=== PATIENT | male | born 1995 | race Caucasian/White ===

== ENCOUNTER 2024-04-12 08:53 | Observation (INO) | payer BC, SELFPAY ==
[2024-04-12] VITALS (21 sets, daily range): BP systolic 79–122; BP diastolic 49–83; PULSE 79–118; RESP 11–20; TEMP 36.9–38.9; O2SAT 98–100; BMI 33.3
[2024-04-12 09:19] LABS: Basophils Percent Auto 0.3 % (0.2-1.2); Eosinophils Absolute Auto 0.1 K/mm3 (0-0.3); Eosinophils Percent Auto 1.5 % (0-4.4); Hematocrit 44.7 % (42.0-52.0); Hemoglobin 14.9 g/dL (14.0-18.0); Immature Granulocyte Absolute 0.01 K/mm3 (0.00-0.031); Immature Granulocyte Percent A 0.1 % (0-0.5); Lymphocytes Absolute Auto 1.12 K/mm3 (0.9-3.2); Mean Corpuscular HGB Conc 33.3 g/dl (32-36); Mean Corpuscular Hemoglobin 30.9 pg (26-34); Mean Corpuscular Volume 92.7 fl (80-100); Mean Platelet Volume 9.8 fl (7.4-10.4); Monocytes Absolute Auto 0.7 K/mm3 (0.1-0.6); Monocytes Percent Auto 9.2 % (2.6-8.5); Neutrophils Absolute Auto 5.5 K/mm3 (1.3-6.7); Neutrophils Percent Auto 73.9 % (45.5-73.1); Platelet Count Result 243 k/mm3 (150-375); Red Blood Count 4.82 M/mm3 (4.6-6.20); White Blood Count 7.5 K/mm3 (4.5-10.0)
--- NOTE | 2024-04-12 09:27 | ED.CHESTPAIN ---
HPI - Chest Pain General Chief Complaint: Chest Pain Stated Complaint: chest pain Time Seen by Provider: 04/12/24 09:08 Source: patient Mode of arrival: ambulatory Limitations: no limitations History of Present Illness HPI narrative: This is a 28-year-old male that presents the emergency department for cold symptoms ongoing over the last couple of days. Reports fever, cough, congestion. Also reports shortness of breath. Reports chest pain that is worse with coughing. Reports recent sick contacts. Related Data Home Medications ?Medication ?Instructions ?Recorded ?Confirmed ?Last Taken ?Type No Home Medications 04/12/24 04/12/24 Unknown History Allergies Allergy/AdvReac Type Severity Reaction Status Date / Time No Known Allergies Allergy Verified 04/12/24 13:01 Review of Systems Review of Systems: CONSTITUTIONAL: Reports fever ENT: Reports congestion CARDIOVASCULAR: Reports chest pain. Denies edema. RESPIRATORY: Reports cough and dyspnea. All systems reviewed & are unremarkable except as noted in HPI and below PMFSH Past Medical History Medical History (Updated 04/12/24 @ 13:24 by Hillary Perez PA-C) No active medical problems Family History Family History (Updated 04/12/24 @ 13:07 by Hailey Romero RN) Mother Hypertension Grandparent Acute myocardial infarction Social History Social History (Updated 04/12/24 @ 09:28 by Hillary Perez PA-C) Smoking status: Never smoker Alcohol intake: current Drinks per week: 0 Substance use: never Do You Feel Safe in your Home?: Yes Lack of Transportation: No Lack of Food: Never True Current Housing: I Have Housing Concerned About Future Housing: No Difficulty Paying Gas/Electric Bills: No Difficulty Paying for Meds: No Currently Unemployed: No Education: High School Diploma/GED Difficulty w/ Childcare or Family Care: No Spiritual care concerns: No Exam Narrative: GENERAL: Well-appearing, well-nourished, and in no acute distress. HEAD: Normocephalic, atraumatic. EYES: EOMI. ENT: Nares clear, no rhinorrhea or epistaxis. Mucous membranes moist. Oropharynx without tonsillar hypertrophy exudate or other lesions. Bilateral TMs pearly gaxiola non-bulging NECK: Supple. No adenopathy or masses. CHEST: Clear to auscultation. No respiratory distress. No wheezes rales or rhonchi HEART: Tachycardic, regular rhythm. No murmur heard. Normal peripheral pulses. EXTREMITIES: Normal range of motion. No edema. SKIN: Warm, dry, no rash. NEURO: No focal deficits. Alert and oriented x3. PSYCH: Normal mood and affect Course Course Emergency Course: patient and family updated on workup and need for admission Consultations Consultation #1: spoke with cardiology who saw the patient in the ER. They will consult Date: 04/12/24 Consultation #2: Spoke with hospitalist about patient and workup who accepts admission Date: 04/12/24 Vital Signs Vital signs: Vital Signs Pulse Rate 112 H 04/12/24 09:00 Respiratory Rate 20 04/12/24 09:00 Pulse Oximetry 100 04/12/24 09:00 Temperature 100.5 F H 04/12/24 11:24 Pulse Rate 90 04/12/24 12:36 Respiratory Rate 18 04/12/24 12:36 Blood Pressure 104/64 04/12/24 12:36 Pulse Oximetry 99 04/12/24 12:36 Oxygen Delivery Room Air 04/12/24 09:05 MDM - Chest Pain MDM Narrative Medical decision making narrative: Patient presents to the emergency department for viral symptoms on will of days. Also endorsing chest pain, shortness of breath. Febrile upon arrival to the ER as well as tachycardic. Patient given antipyretic and hydrated. CBC without concerning findings. Metabolic panel with mild transaminitis. Patient is influenza B positive. Chest x-ray without acute cardiopulmonary abnormality. Patient did have ST elevations noted on EKG, but with normally inflected T-waves which seemed consistent with early repolarization. His baseline troponin has come back at 19.8. spoke with cardiology who saw the patient in the ER. They will consult. Spoke with hospitalist about patient and workup who accepts admission Differential Diagnosis Differential diagnosis: Likely stable angina, costochondritis and other (Pericarditis, myocarditis, NSTEMI, pneumonia) Lab Data Attestation: I reviewed the patient's lab results. 04/12/24 09:06 04/12/24 09:06 Labs: Lab Results 04/12/24 04/12/24 Range/Units 09:06 09:06 WBC 7.5 (4.5-10.0) K/mm3 RBC 4.82 (4.6-6.20) M/mm3 Hgb 14.9 (14.0-18.0) g/dL Hct 44.7 (42.0-52.0) % MCV 92.7 (80-100) fl MCH 30.9 (26-34) pg MCHC 33.3 (32-36) g/dl RDW 12.0 (11.5-14.5) % Plt Count 243 (150-375) k/mm3 MPV 9.8 (7.4-10.4) fl Immature Gran % (Auto) 0.1 (0-0.5) % Neut % (Auto) 73.9 H (45.5-73.1) % Lymph % (Auto) 15.0 L (18.3-44.2) % [place] % (Auto) 9.2 H (2.6-8.5) % Eos % (Auto) 1.5 (0-4.4) % Baso % (Auto) 0.3 (0.2-1.2) % Lymph # (Auto) 1.12 (0.9-3.2) K/mm3 [place] # (Auto) 0.7 H (0.1-0.6) K/mm3 Eos # (Auto) 0.1 (0-0.3) K/mm3 Baso # (Auto) 0.0 (0.0-0.1) K/mm3 Abs Immat Gran (auto) 0.01 (0.00-0.031) K/mm3 Absolute Neuts (auto) 5.5 (1.3-6.7) K/mm3 Absolute Nucleated RBC 0.000 (0.0-0.012) K/mm3 Nucleated RBC % 0.0 (0.0-0.2) % ESR 20 (0-20) mm/hr PT 12.4 (11.1-14.7) Seconds INR 0.9 APTT 27.4 (22.3-36.8) Seconds D-Dimer < 0.27 (<0.48) ug/mL Sodium 141 (137-145) mmol/L Potassium 4.0 (3.4-5.0) mmol/L Chloride 98 (98-107) mmol/L Carbon Dioxide 31 H (22-30) mmol/L Anion Gap 12 (4-12) mmol/L BUN 11 (9-20) mg/dL Creatinine 1.02 (0.7-1.3) mg/dL Estim Creat Clear Calc 95 ml/min Estimated GFR > 60 (59 - ) Glucose 98 (65-110) mg/dL Calcium 9.2 (8.4-10.2) mg/dL Total Bilirubin 0.7 (0.2-1.3) mg/dL AST 188 H (17-59) U/L ALT 60 H (6-50) U/L Alkaline Phosphatase 77 (38-126) U/L Troponin I 19.800 H* (0.000-0.034) ng/mL C-Reactive Protein 2.9 H (<1.0) mg/dL NT-Pro-B Natriuret Pep Cancelled 794 H Total Protein 8.0 (6.3-8.2) g/dL Albumin 4.7 (3.5-5.1) g/dL Lipase 38 (23-300) U/L Influenza A (RT-PCR) Negative (Negative) Influenza B (RT-PCR) Positive A (Negative) RSV (RT-PCR) Negative (Negative) SARS-CoV-2 RNA (RT-PCR) Negative (Negative) Imaging Data Radiologist's impression: ITS Impressions Chest X-Ray 04/12/24 09:35 IMPRESSION: 1. No acute cardiopulmonary disease. ECG Data EKG #1: ECG completion date: 04/12/24 EKG Interpretation: tachycardia, sinus rhythm, ST elevation (With normally inflected T-waves) and normal QT Critical Care Time Critical Care Time Critical Care Time: No Discharge Plan Discharge Clinical Impression: Influenza B, Elevated troponin, Transaminitis Chest pain Qualifiers: Chest pain type: unspecified Qualified Code(s): R07.9 - Chest pain, unspecified Patient Disposition: Still a Patient Condition: Serious
[2024-04-12 09:30] LABS: Alanine Aminotransferase 60 U/L (6-50); Albumin Level 4.7 g/dL (3.5-5.1); Alkaline Phosphatase 77 U/L (38-126); Anion Gap 12 mmol/L (4-12); Aspartate Amino Transferase 188 U/L (17-59); Bilirubin,Total 0.7 mg/dL (0.2-1.3); Blood Urea Nitrogen 11 mg/dL (9-20); Calcium 9.2 mg/dL (8.4-10.2); Carbon Dioxide 31 mmol/L (22-30); Chloride 98 mmol/L (98-107); Estimated CRCL calculation 95 ml/min; Estimated Glomerular Filt Rate > 60; Glucose 98 mg/dL (65-110); Lipase 38 U/L (23-300); Sodium 141 mmol/L (137-145)
[2024-04-12] MEDS: ACETAMINOPHEN 500 MG TABLET 1000 MG PO (09:31)
[2024-04-12] MEDS: SODIUM CHLORIDE 0.9% IV 1,000 ML 999 ML IV CONT (09:32)
[2024-04-12 09:35] LABS: INR 0.9; Prothrombin Time 12.4 Seconds (11.1-14.7)
[2024-04-12 09:36] LABS: Partial Thromboplastin Time 27.4 Seconds (22.3-36.8)
[2024-04-12 09:55] LABS: Influenza A QL RT-PCR Negative (Negative); Influenza B QL RT-PCR Positive (Negative); RSV RNA, RT-PCR Negative (Negative); SARS-CoV-2 RNA PCR Negative (Negative)
[2024-04-12] MEDS: ASPIRIN 81 MG CHEWABLE TABLET 324 MG PO (10:04)
[2024-04-12] MEDS: MORPHINE SULFATE (*CRX) 4 MG/ML INJ IV PUSH (10:04)
[2024-04-12 10:18] LABS: D Dimer < 0.27 ug/mL (<0.48)
[2024-04-12 10:34] LABS: CRP 2.9 mg/dL (<1.0)
[2024-04-12 10:39] LABS: NT Pro B Type Natriuretic Pept 794 pg/mL (19.9-100)
[2024-04-12 10:43] LABS: Erythrocyte Sedimentation Rate 20 mm/hr (0-20)
--- NOTE | 2024-04-12 11:14 | PM.CNCAR ---
Assessment and Plan Assessment and plan (1) Non-STEMI (non-ST elevated myocardial infarction): Code(s): I21.4 - Non-ST elevation (NSTEMI) myocardial infarction Status: Acute Assessment and Plan: -Chest pain and elevated troponin of 19 appears to be secondary to pericarditis. Chest pain is described as a tightness across the chest that came on last night and got worse with cough and improved with change in position. Patient never had anginal chest pain prior to this viral illness. EKG shows diffuse OK depressions suggestive of pericarditis. Most likely etiology of pericarditis appears to be viral. Patient tested positive for influenza A -Start aspirin 1000 mg every 8 hours for 1 week and monitor for chest pain resolution -Add colchicine for 3 months to prevent recurrent pericarditis -TTE -Trend troponin to peak -EKG p.r.n. for any new chest pain -Outpatient exercise stress test after patient recovers from acute illness -Check and replace electrolytes to keep potassium greater than 4 and magnesium greater than 2 (2) Influenza A: Code(s): J10.1 - Influenza due to other identified influenza virus with other respiratory manifestations Status: Acute Assessment and Plan: -Management per ER and primary team (3) Acute pericarditis: Code(s): I30.9 - Acute pericarditis, unspecified Status: Acute Assessment and Plan: Most likely etiology of pericarditis appears to be recent viral infection EKG shows diffuse OK depressions suggestive of pericarditis versus early repolarization Troponin elevated at 19 Chest pain increases with change in position and cough/deep breath Start aspirin 1000 mg every 8 hours for 1 week and monitor for chest pain resolution Add colchicine for 3 months to prevent recurrent pericarditis TTE Trend troponin to peak EKG p.r.n. for any new chest pain Check and replace electrolytes to keep potassium greater than 4 and magnesium greater than 2 History of Present Illness History of Present Illness Consult date/time: 04/12/24 11:14 Reason For Visit: chest pain Narrative: 28-year-old male with no significant past medical history presented to the ER today with chief complaints of chest pain, cough, fever, chills, malaise. He tested positive for influenza A. Troponin is elevated at 19. Cardiology is consulted for further recommendations. Patient complains of cough, shortness or breath, fever, chills, malaise, body aches for past few days with (symptoms started Monday). Last night he reports an episode of tightness across front of his chest that lasted for 1-1/2 hours before it resolved. He says this was of intensity 7 x 10. There was no radiation of pain to any other part of the body. He did not have recurrence of this pain after that episode. When he had the pain it was worse with cough and improved with change in position. In the ER he tested positive for influenza A. Troponin is elevated at 19. EKG showed diffuse OK depressions suggestive of pericarditis. He denies any palpitations, lightheadedness, dizziness, presyncope, syncope, leg swelling, recent weight gain, PND, orthopnea, headache, focal weakness, nausea, emesis, abdominal pain. Workup: Troponin: 19 NT proBNP: 794 EKG:There is diffuse OK depression suggestive of pericarditis, T-wave inversion in lead III Review of Systems Review of Systems: A complete review of systems was performed and negative other than those mentioned in HPI [facility] Past Medical History Medical History (Updated 04/12/24 @ 11:16 by Allie Morgan MD) No active medical problems Social History Social History (Updated 04/12/24 @ 09:28 by Hillary Perez PA-C) Smoking status: Never smoker Meds Home Medications and Allergies Allergies Allergy/AdvReac Type Severity Reaction Status Date / Time No Known Allergies Allergy Verified 04/12/24 08:53 Vital Signs Vital Signs - 24 hr 04/12/24 09:00 04/12/24 09:02 04/12/24 09:03 Temperature Pulse Rate 112 H 118 H 116 H Respiratory Rate 20 16 11 L Blood Pressure 79/57 L 101/58 L Pulse Oximetry 100 98 100 Oxygen Delivery 04/12/24 09:05 04/12/24 09:10 04/12/24 09:16 Temperature 37.8 C H Pulse Rate 115 H 110 H 99 Respiratory Rate 20 Blood Pressure 101/58 L Pulse Oximetry 100 98 Oxygen Delivery Room Air 04/12/24 09:19 04/12/24 09:30 04/12/24 09:46 Temperature Pulse Rate 115 H 113 H 101 H Respiratory Rate 15 16 12 Blood Pressure 122/56 L Pulse Oximetry 100 100 100 Oxygen Delivery 04/12/24 10:05 Temperature 38.9 C H Pulse Rate Respiratory Rate Blood Pressure Pulse Oximetry Oxygen Delivery Exam Narrative: General: Alert oriented x3, no acute distress Neck: Supple, no JVD Chest: Bilaterally clear to auscultation, no rales or rhonchi Cardiac: S1, S2 +, regular rate, regular rhythm, no murmurs or rubs Extremities: No pedal edema, no skin rash Neurologic: Alert and oriented x3, no focal neurological deficits Results Labs and Meds 04/12/24 09:06 04/12/24 09:06 Lab results: Cardiac Enzymes 04/12/24 Range/Units 09:06 AST 188 H (17-59) U/L Troponin I 19.800 H* (0.000-0.034) ng/mL Coagulation 04/12/24 Range/Units 09:06 PT 12.4 (11.1-14.7) Seconds APTT 27.4 (22.3-36.8) Seconds CBC 04/12/24 Range/Units 09:06 WBC 7.5 (4.5-10.0) K/mm3 RBC 4.82 (4.6-6.20) M/mm3 Hgb 14.9 (14.0-18.0) g/dL Hct 44.7 (42.0-52.0) % Plt Count 243 (150-375) k/mm3 Lymph # (Auto) 1.12 (0.9-3.2) K/mm3 [place] # (Auto) 0.7 H (0.1-0.6) K/mm3 Eos # (Auto) 0.1 (0-0.3) K/mm3 Baso # (Auto) 0.0 (0.0-0.1) K/mm3 Comprehensive Metabolic Panel 04/12/24 Range/Units 09:06 Sodium 141 (137-145) mmol/L Potassium 4.0 (3.4-5.0) mmol/L Chloride 98 (98-107) mmol/L Carbon Dioxide 31 H (22-30) mmol/L BUN 11 (9-20) mg/dL Creatinine 1.02 (0.7-1.3) mg/dL Glucose 98 (65-110) mg/dL Calcium 9.2 (8.4-10.2) mg/dL AST 188 H (17-59) U/L ALT 60 H (6-50) U/L Alkaline Phosphatase 77 (38-126) U/L Total Protein 8.0 (6.3-8.2) g/dL Albumin 4.7 (3.5-5.1) g/dL Patient Weight 04/12/24 23:59 Weight 86.6 kg EKG Interpretation EKG shows: sinus rhythm (There is diffuse OK depression suggestive of pericarditis, T-wave inversion in lead III)
[2024-04-12] MEDS: OSELTAMIVIR PHOSPHATE 75 MG CAPSULE PO (11:17)
--- NOTE | 2024-04-12 12:25 | PM.IMHP ---
H&P: HPI History of Present Illness Date/Time: 04/12/24 12:25 Chief Complaint: Cold-like symptoms, chest pain Narrative: This is a 28-year-old male with no significant medical history that presented to the emergency department for cold symptoms ongoing over the last couple of days. Reports fever, cough, congestion that began on Monday. Reports chest pain that is worse with coughing and shortness of breath began today. Patient reports that his chest pain continued to get worse so he came to the ER for evaluation. On arrival to ER vital signs noted temperature a 100.5?, pulse 90 respirations 18 blood pressure 104/64 he was satting 99% on room air. EKG noted sinus rhythm, ST elevation in diffuse leads, probably early repolarization, minimal Q-waves, diffuse leads. Baseline artifacts in V1, V2, AVR, aVL, AVF, V1 through 5, this is a borderline EKG. Workup in the emergency department her white blood cell count of 7.5, hemoglobin 14.9, hematocrit 44.7, platelets 243, ESR is 20, BUN 11 creatinine 1.02, GFR 60. AST 188, ALT 60, total bili 0.7. BNP noted to be elevated at 794. CRP 2.9. Initial troponin was positive at 19.800, 1 hour repeat was 21.400. Chest xray No acute cardiopulmonary disease. CTA The heart is of normal size. No pericardial thickening. No pericardial effusion. No pericardial enhancement. No pulmonary embolus. No thoracic aortic dissection. The lungs are clear. On assessment patient states that his chest pain does improve with changes in position, he denies any shortness of breath at this time. Fever had reduced with antipyretics in the emergency department. He denied any nausea, vomiting or diarrhea. He denies any muscle aches. He did report fatigue. Cardiology was consulted in ER, per note Chest pain and elevated troponin of 19 appears to be secondary to pericarditis. Patient never had anginal chest pain prior to this viral illness. EKG shows diffuse MN depressions suggestive of pericarditis. Most likely etiology of pericarditis appears to be viral. Patient tested positive for influenza B. Patient was examine and admitted for a viral pericarditis, elevated troponins, influenza B. Review of Systems Review of Systems: All systems reviewed & are unremarkable except as noted in HPI and below Constitutional: Constitutional: Reports as per HPI, Reports no additional constitutional complaints, Reports chills, Reports fever(s) and Reports malaise Eyes: Eyes: Reports as per HPI and Reports no additional eye complaints ENT: Reports system reviewed and no additional complaints, except as documented Cardiovascular: Cardiovascular: Reports chest pain and Reports dyspnea Respiratory: Respiratory: Reports cough Gastrointestinal: Gastrointestinal: Reports as per HPI and Reports no additional gastrointestinal complaints Genitourinary: Genitourinary: Reports no additional male genitourinary complaints Musculoskeletal: Musculoskeletal: Reports no additional musculoskeletal complaints Integumentary/Breasts: Skin/Breast: Reports system reviewed and no additional complaints, except as docu Neurologic: Reports system reviewed and no additional complaints, except as documented Psychiatric: Psychiatric: Reports no additional psychiatric complaints Endocrine: Endocrine: Reports no additional endocrine complaints Allergic/Immunologic: Allergic/Immunologic: Reports no additional allergic/immunologic complaints [facility] Past Medical History Medical History No active medical problems Family History Family History Mother Hypertension Grandparent Acute myocardial infarction Social History Social History Smoking status: Never smoker Alcohol intake: current Drinks per week: 0 Substance use: never Do You Feel Safe in your Home?: Yes Lack of Transportation: No Lack of Food: Never True Current Housing: I Have Housing Concerned About Future Housing: No Difficulty Paying Gas/Electric Bills: No Difficulty Paying for Meds: No Currently Unemployed: No Education: High School Diploma/GED Difficulty w/ Childcare or Family Care: No Spiritual care concerns: No Meds Home Medications and Allergies Home Medications ?Medication ?Instructions ?Recorded ?Confirmed ?Type No Home Medications 04/12/24 04/12/24 History Allergies Allergy/AdvReac Type Severity Reaction Status Date / Time No Known Allergies Allergy Verified 04/12/24 13:01 Vital Signs Vital Signs - 24 hr 04/12/24 09:00 04/12/24 09:02 04/12/24 09:03 Temperature Pulse Rate 112 H 118 H 116 H Respiratory Rate 20 16 11 L Blood Pressure 79/57 L 101/58 L Pulse Oximetry 100 98 100 Oxygen Delivery 04/12/24 09:05 04/12/24 09:10 04/12/24 09:16 Temperature 100.0 F H Pulse Rate 115 H 110 H 99 Respiratory Rate 20 Blood Pressure 101/58 L Pulse Oximetry 100 98 Oxygen Delivery Room Air 04/12/24 09:19 04/12/24 09:30 04/12/24 09:46 Temperature Pulse Rate 115 H 113 H 101 H Respiratory Rate 15 16 12 Blood Pressure 122/56 L Pulse Oximetry 100 100 100 Oxygen Delivery 04/12/24 10:05 04/12/24 11:24 Temperature 102.1 F H 100.5 F H Pulse Rate Respiratory Rate Blood Pressure Pulse Oximetry Oxygen Delivery Exam Const: General: cooperative, no acute distress, alert, awake and ill appearing Nutritional Appearance: average body habitus Orientation/consciousness: patient oriented x3 Limitations: no limitations HENMT: Head: normocephalic Eyes: General: appearance normal, both eyes and all related structures Neck: Neck: full ROM and supple Chest: Chest palpation & inspection: normal inspection of the chest and normal palpation of entire chest wall Resp: Effort & Inspection: normal respiratory effort and Actively coughing Auscultation: rhonchi and diminished lung sounds bilateral in the lower lung amaya Cardio: Jugular venous distension: no JVD Rate: tachycardic Rhythm: abnormal rhythm Heart sounds: S1 normal heart sound present and S2 normal heart sound present Peripheral pulses: Peripheral pulses 2+ throughout GI: Inspection: normal to inspection GI Palp: Yes Soft to palpation Auscultation: normal bowel sounds Skin: General skin exam: normal color and no rashes or lesions noted Neuro: General: patient oriented x3, tone normal and moves all extremities Extrem: General: normal to inspection and full ROM Psych: Appearance: grossly normal Mental Status: mental status grossly normal Speech and movement: Normal speech and movement present H&P: Results Labs Labs: Short CBC 04/12/24 Range/Units 09:06 WBC 7.5 (4.5-10.0) K/mm3 Hgb 14.9 (14.0-18.0) g/dL Hct 44.7 (42.0-52.0) % Plt Count 243 (150-375) k/mm3 [facility] 04/12/24 09:06 Sodium 141 Potassium 4.0 Chloride 98 Carbon Dioxide 31 H BUN 11 Creatinine 1.02 Glucose 98 Calcium 9.2 Cardiac Enzymes 04/12/24 Range/Units 09:06 Troponin I 19.800 H* (0.000-0.034) ng/mL Liver Function 04/12/24 Range/Units 09:06 Total Bilirubin 0.7 (0.2-1.3) mg/dL AST 188 H (17-59) U/L ALT 60 H (6-50) U/L Alkaline Phosphatase 77 (38-126) U/L Albumin 4.7 (3.5-5.1) g/dL Imaging CT scan - chest: Radiologist's impression: HEART: The heart is of normal size. No pericardial thickening. No pericardial effusion. No pericardial enhancement. IMPRESSION: No pulmonary embolus. No thoracic aortic dissection. The lungs are clear. Chest x-ray: Radiologist's impression: IMPRESSION: 1. No acute cardiopulmonary disease. Assessment and Plan Assessment and plan (1) Non-STEMI (non-ST elevated myocardial infarction): Code(s): I21.4 - Non-ST elevation (NSTEMI) myocardial infarction Status: Acute Assessment and Plan: ##Chest pain and elevated troponin of 19 appears to be secondary to pericarditis. -->improves with position -->EKG shows diffuse MN depressions suggestive of pericarditis. Most likely etiology of pericarditis appears to be viral. --> positive for influenza B Per Cardiology: -Start aspirin 1000 mg every 8 hours for 1 week and monitor for chest pain resolution -Add colchicine for 3 months to prevent recurrent pericarditis -TTE -Trend troponin to peak -EKG p.r.n. for any new chest pain -Outpatient exercise stress test after patient recovers from acute illness -Check and replace electrolytes to keep potassium greater than 4 and magnesium greater than 2 (2) Influenza A: Code(s): J10.1 - Influenza due to other identified influenza virus with other respiratory manifestations Status: Acute Assessment and Plan: ##Influenza b positive --> symptomatic management --out of tamiflu window --trend labs (3) Acute pericarditis: Code(s): I30.9 - Acute pericarditis, unspecified Status: Acute Assessment and Plan: ##Most likely etiology of pericarditis appears to be recent viral infection Inflluenza b positive -->EKG shows diffuse MN depressions suggestive of pericarditis versus early repolarization -->Troponin elevated at 19 -trend trops per Cardiology: -Start aspirin 1000 mg every 8 hours for 1 week and monitor for chest pain resolution -Add colchicine for 3 months to prevent recurrent pericarditis -TTE -Trend troponin to peak - EKG p.r.n. for any new chest pain - Check and replace electrolytes to keep potassium greater than 4 and magnesium greater than 2 Plan DVT: lovenox/mechanical Code: Full Code Quality VTE Prophylaxis VTE prophylaxis: mechanical ordered and pharmacologic ordered Hospitalist MIPS Advance Care Plan I have confirmed that the patient's Advanced Care Plan is present, code status is documented, or surrogate decision maker is listed in patient medical record.: Yes Medication Reconciliation I have utilized all available resources to obtain, update and review the patients current medications (includes all prescriptions, OTC, herbals, cannabis, and nutritional supplements).: Yes
[2024-04-12 12:34] LABS: Magnesium 1.9 mg/dL (1.6-2.3)
--- NOTE | 2024-04-12 12:56 | ADMGEN ---
This patient, Richie Coyle, was admitted to ICU 9 at 1250 as IMU overflow. Patient/family oriented to hospital policies and general routines including ID bracelet, bed and alarms, visiting hours, pain management, procedures, bathroom and other care routines, personal items, smoking policy, room service/diet, and visiting hours. Information on how to activate the Rapid Response Team has been discussed. Patient/Family are encouraged to report perceived risks to care and to ask questions if they do not understand what they are told or what they should do.
[2024-04-12 15:09] LABS: MRSA (PCR) NOT DETECTED (NOT DETECTE)
[2024-04-12] MEDS: ASPIRIN 325 MG TABLET 975 MG PO (17:17)
--- NOTE | 2024-04-12 22:27 | PC.NURSE ---
2146 patient transferred to IMU room 214 via bed. Patient personal belongings with patient.
[2024-04-13] VITALS (13 sets, daily range): BP systolic 99–108; BP diastolic 42–64; PULSE 67–92; RESP 18–20; TEMP 36.6–36.8; O2SAT 98–100
[2024-04-13 04:46] LABS: Basophils Percent Auto 0.4 % (0.2-1.2); Eosinophils Absolute Auto 0.1 K/mm3 (0-0.3); Eosinophils Percent Auto 2.7 % (0-4.4); Hematocrit 39.3 % (42.0-52.0); Hemoglobin 13.2 g/dL (14.0-18.0); Immature Granulocyte Absolute 0.01 K/mm3 (0.00-0.031); Immature Granulocyte Percent A 0.2 % (0-0.5); Lymphocytes Absolute Auto 1.33 K/mm3 (0.9-3.2); Lymphocytes Percent Auto 25.4 % (18.3-44.2); Mean Corpuscular HGB Conc 33.6 g/dl (32-36); Mean Corpuscular Volume 92.3 fl (80-100); Mean Platelet Volume 9.3 fl (7.4-10.4); Monocytes Absolute Auto 0.6 K/mm3 (0.1-0.6); Monocytes Percent Auto 10.5 % (2.6-8.5); Neutrophils Absolute Auto 3.2 K/mm3 (1.3-6.7); Neutrophils Percent Auto 60.8 % (45.5-73.1); Platelet Count Result 203 k/mm3 (150-375); Red Blood Count 4.26 M/mm3 (4.6-6.20); White Blood Count 5.2 K/mm3 (4.5-10.0)
[2024-04-13 04:57] LABS: Alanine Aminotransferase 52 U/L (6-50); Albumin Level 3.9 g/dL (3.5-5.1); Alkaline Phosphatase 72 U/L (38-126); Anion Gap 6 mmol/L (4-12); Aspartate Amino Transferase 116 U/L (17-59); Bilirubin,Total 0.5 mg/dL (0.2-1.3); Blood Urea Nitrogen 9 mg/dL (9-20); Calcium 8.6 mg/dL (8.4-10.2); Carbon Dioxide 31 mmol/L (22-30); Chloride 102 mmol/L (98-107); Estimated CRCL calculation 98 ml/min; Estimated Glomerular Filt Rate > 60; Glucose 95 mg/dL (65-110); Potassium 4.7 mmol/L (3.4-5.0); Sodium 139 mmol/L (137-145)
[2024-04-13 05:04] LABS: NT Pro B Type Natriuretic Pept 708 pg/mL (19.9-100)
--- NOTE | 2024-04-13 08:30 | PM.IMPN ---
Progress Note: A&P Assessment and Plan (1) Non-STEMI (non-ST elevated myocardial infarction): Code(s): I21.4 - Non-ST elevation (NSTEMI) myocardial infarction Status: Acute Assessment and Plan: ##Chest pain and elevated troponin of 19 appears to be secondary to pericarditis. -->improves with position -->EKG shows diffuse VA depressions suggestive of pericarditis. Most likely etiology of pericarditis appears to be viral. --> positive for influenza B Per Cardiology: -Start aspirin 1000 mg every 8 hours for 1 week and monitor for chest pain resolution -Add colchicine for 3 months to prevent recurrent pericarditis -TTE -Trend troponin to peak -EKG p.r.n. for any new chest pain -Outpatient exercise stress test after patient recovers from acute illness -Check and replace electrolytes to keep potassium greater than 4 and magnesium greater than 2 (2) Influenza A: Code(s): J10.1 - Influenza due to other identified influenza virus with other respiratory manifestations Status: Acute Assessment and Plan: ##Influenza b positive --> symptomatic management --out of tamiflu window --trend labs (3) Acute pericarditis: Code(s): I30.9 - Acute pericarditis, unspecified Status: Acute Assessment and Plan: ##Most likely etiology of pericarditis appears to be recent viral infection Inflluenza b positive -->EKG shows diffuse VA depressions suggestive of pericarditis versus early repolarization -->Troponin elevated at 19 -trend trops per Cardiology: -Start aspirin 1000 mg every 8 hours for 1 week and monitor for chest pain resolution -Add colchicine for 3 months to prevent recurrent pericarditis -TTE -Trend troponin to peak - EKG p.r.n. for any new chest pain - Check and replace electrolytes to keep potassium greater than 4 and magnesium greater than 2 Plan DVT: lovenox/mechanical Code: Full Code Subjective Date/time seen: 04/13/24 08:30 Interval history: Patient denies any chest pain, or sob or palpitations. Possible discharge tomorrow. Reviewed ECHO Review of Systems Review of Systems: All systems reviewed & are unremarkable except as noted in HPI and below Constitutional: Constitutional: Reports as per HPI, Reports no additional constitutional complaints, Reports chills, Reports fever(s) and Reports malaise Eyes: Eyes: Reports as per HPI and Reports no additional eye complaints ENT: Reports system reviewed and no additional complaints, except as documented Cardiovascular: Cardiovascular: Reports chest pain and Reports dyspnea Respiratory: Respiratory: Reports cough and Reports dyspnea Gastrointestinal: Gastrointestinal: Reports as per HPI and Reports no additional gastrointestinal complaints Genitourinary: Genitourinary: Reports no additional male genitourinary complaints Musculoskeletal: Musculoskeletal: Reports no additional musculoskeletal complaints Integumentary/Breasts: Skin/Breast: Reports system reviewed and no additional complaints, except as docu Neurologic: Reports system reviewed and no additional complaints, except as documented Psychiatric: Psychiatric: Reports no additional psychiatric complaints Endocrine: Endocrine: Reports no additional endocrine complaints Allergic/Immunologic: Allergic/Immunologic: Reports no additional allergic/immunologic complaints Exam Const: General: cooperative, no acute distress, alert, awake, ill appearing and average body habitus Nutritional Appearance: average body habitus Orientation/consciousness: patient oriented x3 Limitations: no limitations HENMT: Head: normocephalic Eyes: General: appearance normal, both eyes and all related structures Neck: Neck: full ROM and supple Chest: Chest palpation & inspection: normal inspection of the chest and normal palpation of entire chest wall Resp: Effort & Inspection: normal respiratory effort and Actively coughing Auscultation: rhonchi and diminished lung sounds bilateral in the lower lung amaya Cardio: Jugular venous distension: no JVD Rate: tachycardic Rhythm: abnormal rhythm Heart sounds: S1 normal heart sound present and S2 normal heart sound present Peripheral pulses: Peripheral pulses 2+ throughout GI: Inspection: normal to inspection Auscultation: normal bowel sounds Skin: General skin exam: normal color and no rashes or lesions noted Neuro: General: patient oriented x3, tone normal and moves all extremities Extrem: General: normal to inspection and full ROM Psych: Appearance: grossly normal Mental Status: mental status grossly normal Speech and movement: Normal speech and movement present Objective Data Vital Signs Vital Signs: Vital Signs - 24 hr 04/12/24 09:00 04/12/24 09:02 04/12/24 09:03 Temperature Pulse Rate 112 H 118 H 116 H Respiratory Rate 20 16 11 L Blood Pressure 79/57 L 101/58 L Pulse Oximetry 100 98 100 Oxygen Delivery 04/12/24 09:05 04/12/24 09:10 04/12/24 09:16 Temperature 100.0 F H Pulse Rate 115 H 110 H 99 Respiratory Rate 20 Blood Pressure 101/58 L Pulse Oximetry 100 98 Oxygen Delivery Room Air 04/12/24 09:19 04/12/24 09:30 04/12/24 09:46 Temperature Pulse Rate 115 H 113 H 101 H Respiratory Rate 15 16 12 Blood Pressure 122/56 L Pulse Oximetry 100 100 100 Oxygen Delivery 04/12/24 10:05 04/12/24 11:24 04/12/24 12:36 Temperature 102.1 F H 100.5 F H Pulse Rate 90 Respiratory Rate 18 Blood Pressure 104/64 Pulse Oximetry 99 Oxygen Delivery 04/12/24 13:13 04/12/24 14:00 04/12/24 14:04 Temperature Pulse Rate 90 99 Respiratory Rate 17 Blood Pressure 98/58 L Pulse Oximetry 100 Oxygen Delivery Room Air 04/12/24 16:00 04/12/24 16:00 04/12/24 17:20 Temperature 99.2 F Pulse Rate 79 89 106 H Respiratory Rate 15 Blood Pressure 97/55 L 108/54 L Pulse Oximetry 99 Oxygen Delivery 04/12/24 18:00 04/12/24 20:00 04/12/24 20:00 Temperature 98.5 F Pulse Rate 90 80 80 Respiratory Rate 18 Blood Pressure 101/83 Pulse Oximetry 98 Oxygen Delivery 04/12/24 20:00 04/12/24 22:00 04/12/24 23:45 Temperature 98.5 F Pulse Rate 80 83 84 Respiratory Rate 18 16 Blood Pressure 98/49 L Pulse Oximetry 98 100 Oxygen Delivery Room Air 04/12/24 23:46 04/13/24 00:00 04/13/24 00:00 Temperature Pulse Rate 70 Respiratory Rate Blood Pressure 100/58 L Pulse Oximetry Oxygen Delivery Room Air 04/13/24 02:00 04/13/24 04:00 04/13/24 04:00 Temperature 98.1 F Pulse Rate 70 84 Respiratory Rate 18 Blood Pressure 103/51 L Pulse Oximetry 99 Oxygen Delivery Room Air 04/13/24 04:00 04/13/24 07:55 Temperature 98.2 F Pulse Rate 71 78 Respiratory Rate 18 Blood Pressure 100/48 L Pulse Oximetry 100 Oxygen Delivery Intake/Output Intake/Output: Intake & Output 04/10/24 04/11/24 04/12/24 04/13/24 23:59 23:59 23:59 23:59 Intake Total 1350 Output Total 950 Balance 400 Meds/Results Medications: Active Medications Generic Name Dose Route Start Last Admin Trade Name Freq PRN Reason Stop Dose Admin Aspirin 975 mg 04/12/24 17:00 04/12/24 17:17 Aspirin 325 Mg Tablet PO 975 mg TID CLAUDIA Administration Colchicine 0.6 mg 04/13/24 09:00 Colchicine 0.6 Mg Tablet PO QAM CLAUDIA Perflutren Lipid Microsphere 0 ml 04/12/24 11:37 Perflutren Lipid Microspheres 1.5 Ml Vial Diluted To 10 Ml Total Volume IV PUSH 04/15/24 11:37 ONCE PRN adequate visualization Protocol Radiology Results: ITS Impressions Chest CTA 04/12/24 13:34 IMPRESSION: No pulmonary embolus. No thoracic aortic dissection. The lungs are clear. Chest X-Ray 04/13/24 07:23 IMPRESSION: 1. Normal chest radiograph. Labs Labs: Laboratory Results - last 24 hr 04/12/24 04/12/24 04/12/24 09:06 09:06 12:15 WBC 7.5 RBC 4.82 Hgb 14.9 Hct 44.7 MCV 92.7 MCH 30.9 MCHC 33.3 RDW 12.0 Plt Count 243 MPV 9.8 Immature Gran % (Auto) 0.1 Neut % (Auto) 73.9 H Lymph % (Auto) 15.0 L [place] % (Auto) 9.2 H Eos % (Auto) 1.5 Baso % (Auto) 0.3 Lymph # (Auto) 1.12 [place] # (Auto) 0.7 H Eos # (Auto) 0.1 Baso # (Auto) 0.0 Abs Immat Gran (auto) 0.01 Absolute Neuts (auto) 5.5 Absolute Nucleated RBC 0.000 Nucleated RBC % 0.0 ESR 20 PT 12.4 INR 0.9 APTT 27.4 D-Dimer < 0.27 Sodium 141 Potassium 4.0 Chloride 98 Carbon Dioxide 31 H Anion Gap 12 BUN 11 Creatinine 1.02 Estim Creat Clear Calc 95 Estimated GFR > 60 Glucose 98 Calcium 9.2 Magnesium 1.9 Total Bilirubin 0.7 AST 188 H ALT 60 H Alkaline Phosphatase 77 Troponin I 19.800 H* 21.400 H* C-Reactive Protein 2.9 H NT-Pro-B Natriuret Pep Cancelled 794 H Total Protein 8.0 Albumin 4.7 Lipase 38 Nasal MRSA (PCR) Influenza A (RT-PCR) Negative Influenza B (RT-PCR) Positive A RSV (RT-PCR) Negative SARS-CoV-2 RNA (RT-PCR) Negative 04/12/24 04/12/24 04/12/24 13:47 14:35 17:46 WBC RBC Hgb Hct MCV MCH MCHC RDW Plt Count MPV Immature Gran % (Auto) Neut % (Auto) Lymph % (Auto) [place] % (Auto) Eos % (Auto) Baso % (Auto) Lymph # (Auto) [place] # (Auto) Eos # (Auto) Baso # (Auto) Abs Immat Gran (auto) Absolute Neuts (auto) Absolute Nucleated RBC Nucleated RBC % ESR PT INR APTT D-Dimer Sodium Potassium Chloride Carbon Dioxide Anion Gap BUN Creatinine Estim Creat Clear Calc Estimated GFR Glucose Calcium Magnesium Total Bilirubin AST ALT Alkaline Phosphatase Troponin I 19.300 H* 17.600 H* C-Reactive Protein NT-Pro-B Natriuret Pep Total Protein Albumin Lipase Nasal MRSA (PCR) Not detected Influenza A (RT-PCR) Influenza B (RT-PCR) RSV (RT-PCR) SARS-CoV-2 RNA (RT-PCR) 04/12/24 04/13/24 21:12 04:35 WBC 5.2 RBC 4.26 L Hgb 13.2 L Hct 39.3 L MCV 92.3 MCH 31.0 MCHC 33.6 RDW 12.0 Plt Count 203 MPV 9.3 Immature Gran % (Auto) 0.2 Neut % (Auto) 60.8 Lymph % (Auto) 25.4 [place] % (Auto) 10.5 H Eos % (Auto) 2.7 Baso % (Auto) 0.4 Lymph # (Auto) 1.33 [place] # (Auto) 0.6 Eos # (Auto) 0.1 Baso # (Auto) 0.0 Abs Immat Gran (auto) 0.01 Absolute Neuts (auto) 3.2 Absolute Nucleated RBC 0.000 Nucleated RBC % 0.0 ESR PT INR APTT D-Dimer Sodium 139 Potassium 4.7 Chloride 102 Carbon Dioxide 31 H Anion Gap 6 BUN 9 Creatinine 0.99 Estim Creat Clear Calc 98 Estimated GFR > 60 Glucose 95 Calcium 8.6 Magnesium Total Bilirubin 0.5 AST 116 H ALT 52 H Alkaline Phosphatase 72 Troponin I 18.700 H* C-Reactive Protein NT-Pro-B Natriuret Pep 708 H Total Protein 7.0 Albumin 3.9 Lipase Nasal MRSA (PCR) Influenza A (RT-PCR) Influenza B (RT-PCR) RSV (RT-PCR) SARS-CoV-2 RNA (RT-PCR) Quality VTE Prophylaxis VTE prophylaxis: mechanical ordered and pharmacologic ordered Hospitalist MIPS Advance Care Plan I have confirmed that the patient's Advanced Care Plan is present, code status is documented, or surrogate decision maker is listed in patient medical record.: Yes Medication Reconciliation I have utilized all available resources to obtain, update and review the patients current medications (includes all prescriptions, OTC, herbals, cannabis, and nutritional supplements).: Yes
[2024-04-13] MEDS: COLCHICINE 0.6 MG TABLET PO (10:05)
[2024-04-13] MEDS: ASPIRIN 325 MG TABLET 975 MG PO ×3 (10:05→18:07)
--- NOTE | 2024-04-13 12:22 | PM.PNCARD ---
Progress Note: A&P Assessment and Plan (1) Acute pericarditis: Code(s): I30.9 - Acute pericarditis, unspecified Status: Acute (2) Chest pain: Qualifiers: Chest pain type: unspecified Qualified Code(s): R07.9 - Chest pain, unspecified Code(s): R07.9 - Chest pain, unspecified Status: Acute (3) Elevated troponin: Code(s): R79.89 - Other specified abnormal findings of blood chemistry Status: Acute Plan -Chest pain and elevated troponin of 19 appears to be secondary to pericarditis. Chest pain is described as a tightness across the chest that came on last night and got worse with cough and improved with change in position. Patient never had anginal chest pain prior to this viral illness. EKG shows diffuse SD depressions suggestive of pericarditis. Most likely etiology of pericarditis appears to be viral. Patient tested positive for influenza A -continue aspirin 1000 mg every 8 hours for 1 week. Chest pain has resolved -continue colchicine for 3 months to prevent recurrent pericarditis -TTE shows normal EF of 55% -Recommend outpatient exercise stress test after patient recovers from acute illness -Check and replace electrolytes to keep potassium greater than 4 and magnesium greater than 2 -cardiology will sign off please call us with any questions Subjective Date/time seen: 04/13/24 12:22 Interval history: Reason for encounter: Elevated troponin Relevant history: 28-year-old male with no significant past medical history presented to the ER today with chief complaints of chest pain that was worse with cough and improved with change in position, cough, fever, chills, malaise. He tested positive for influenza A. Troponin was elevated at 19 and Cardiology consulted for further recommendations. EKG showed diffuse SD depressions suggestive of pericarditis. He was started on high-dose aspirin p.o. t.i.d. and colchicine. Workup: Troponin: 19, 19.8, 21 point, 19.3, 17.6, 18.7 NT proBNP: 794 EKG:There is diffuse SD depression suggestive of pericarditis, T-wave inversion in lead III TTE: LVEF 55%, no significant valvular pathology Interval history: Patient is doing well this morning. He states his shortness of breath body aches chills have all decreased. No chest pain. Aspirin has helped. No palpitations, chest pain, diaphoresis, nausea, emesis, fever, chills, shortness of breath, headache, focal weakness. Review of Systems Review of Systems: Complete review of systems was performed and negative other than those mentioned HPI Exam Narrative: General: Alert oriented x3, no acute distress Neck: Supple, no JVD Chest: Bilaterally clear to auscultation, no rales or rhonchi Cardiac: S1, S2 +, regular rate, regular rhythm, no murmurs or rubs Extremities: No pedal edema, no skin rash Neurologic: Alert and oriented x3, no focal neurological deficits Objective Data Vital Signs Vital Signs: Vital Signs - 24 hr 04/12/24 12:36 04/12/24 13:13 04/12/24 14:00 Temperature Pulse Rate 90 90 Respiratory Rate 18 Blood Pressure 104/64 Pulse Oximetry 99 Oxygen Delivery Room Air 04/12/24 14:04 04/12/24 16:00 04/12/24 16:00 Temperature 37.3 C Pulse Rate 99 79 89 Respiratory Rate 17 15 Blood Pressure 98/58 L 97/55 L Pulse Oximetry 100 99 Oxygen Delivery 04/12/24 17:20 04/12/24 18:00 04/12/24 20:00 Temperature 36.9 C Pulse Rate 106 H 90 80 Respiratory Rate 18 Blood Pressure 108/54 L 101/83 Pulse Oximetry 98 Oxygen Delivery 04/12/24 20:00 04/12/24 20:00 04/12/24 22:00 Temperature Pulse Rate 80 80 83 Respiratory Rate 18 Blood Pressure Pulse Oximetry 98 Oxygen Delivery Room Air 04/12/24 23:45 04/12/24 23:46 04/13/24 00:00 Temperature 36.9 C Pulse Rate 84 Respiratory Rate 16 Blood Pressure 98/49 L 100/58 L Pulse Oximetry 100 Oxygen Delivery Room Air 04/13/24 00:00 04/13/24 02:00 04/13/24 04:00 Temperature Pulse Rate 70 70 Respiratory Rate Blood Pressure Pulse Oximetry Oxygen Delivery Room Air 04/13/24 04:00 04/13/24 04:00 04/13/24 07:55 Temperature 36.7 C 36.8 C Pulse Rate 84 71 78 Respiratory Rate 18 18 Blood Pressure 103/51 L 100/48 L Pulse Oximetry 99 100 Oxygen Delivery 04/13/24 08:41 Temperature Pulse Rate Respiratory Rate Blood Pressure Pulse Oximetry 98 Oxygen Delivery Room Air Intake/Output Intake/Output: Intake & Output 04/10/24 04/11/24 04/12/24 04/13/24 23:59 23:59 23:59 23:59 Intake Total 1350 480 Output Total 950 Balance 400 480 Meds/Results Medications: Active Medications Generic Name Dose Route Start Last Admin Trade Name Freq PRN Reason Stop Dose Admin Aspirin 975 mg 04/12/24 17:00 04/13/24 10:05 Aspirin 325 Mg Tablet PO 975 mg TID CLAUDIA Administration Colchicine 0.6 mg 04/13/24 09:00 04/13/24 10:05 Colchicine 0.6 Mg Tablet PO 0.6 mg QAM CLAUDIA Administration Perflutren Lipid Microsphere 0 ml 04/12/24 11:37 Perflutren Lipid Microspheres 1.5 Ml Vial Diluted To 10 Ml Total Volume IV PUSH 04/15/24 11:37 ONCE PRN adequate visualization Protocol Radiology Results: ITS Impressions Chest CTA 04/12/24 13:34 IMPRESSION: No pulmonary embolus. No thoracic aortic dissection. The lungs are clear. Chest X-Ray 04/13/24 07:23 IMPRESSION: 1. Normal chest radiograph. Labs Labs: Laboratory Results - last 24 hr 04/12/24 04/12/24 04/12/24 12:15 13:47 14:35 WBC RBC Hgb Hct MCV MCH MCHC RDW Plt Count MPV Immature Gran % (Auto) Neut % (Auto) Lymph % (Auto) [place] % (Auto) Eos % (Auto) Baso % (Auto) Lymph # (Auto) [place] # (Auto) Eos # (Auto) Baso # (Auto) Abs Immat Gran (auto) Absolute Neuts (auto) Absolute Nucleated RBC Nucleated RBC % Sodium Potassium Chloride Carbon Dioxide Anion Gap BUN Creatinine Estim Creat Clear Calc Estimated GFR Glucose Calcium Magnesium 1.9 Total Bilirubin AST ALT Alkaline Phosphatase Troponin I 21.400 H* 19.300 H* NT-Pro-B Natriuret Pep Total Protein Albumin Nasal MRSA (PCR) Not detected 04/12/24 04/12/24 04/13/24 17:46 21:12 04:35 WBC 5.2 RBC 4.26 L Hgb 13.2 L Hct 39.3 L MCV 92.3 MCH 31.0 MCHC 33.6 RDW 12.0 Plt Count 203 MPV 9.3 Immature Gran % (Auto) 0.2 Neut % (Auto) 60.8 Lymph % (Auto) 25.4 [place] % (Auto) 10.5 H Eos % (Auto) 2.7 Baso % (Auto) 0.4 Lymph # (Auto) 1.33 [place] # (Auto) 0.6 Eos # (Auto) 0.1 Baso # (Auto) 0.0 Abs Immat Gran (auto) 0.01 Absolute Neuts (auto) 3.2 Absolute Nucleated RBC 0.000 Nucleated RBC % 0.0 Sodium 139 Potassium 4.7 Chloride 102 Carbon Dioxide 31 H Anion Gap 6 BUN 9 Creatinine 0.99 Estim Creat Clear Calc 98 Estimated GFR > 60 Glucose 95 Calcium 8.6 Magnesium Total Bilirubin 0.5 AST 116 H ALT 52 H Alkaline Phosphatase 72 Troponin I 17.600 H* 18.700 H* NT-Pro-B Natriuret Pep 708 H Total Protein 7.0 Albumin 3.9 Nasal MRSA (PCR)
[2024-04-14] VITALS (10 sets, daily range): BP systolic 100–110; BP diastolic 44–58; PULSE 61–99; RESP 18–20; TEMP 36.7–36.8; O2SAT 98–100
[2024-04-14 04:54] LABS: Basophils Percent Auto 0.4 % (0.2-1.2); Eosinophils Absolute Auto 0.1 K/mm3 (0-0.3); Eosinophils Percent Auto 2.7 % (0-4.4); Hematocrit 39.1 % (42.0-52.0); Hemoglobin 13.1 g/dL (14.0-18.0); Immature Granulocyte Absolute 0.01 K/mm3 (0.00-0.031); Immature Granulocyte Percent A 0.2 % (0-0.5); Lymphocytes Absolute Auto 1.28 K/mm3 (0.9-3.2); Lymphocytes Percent Auto 26.1 % (18.3-44.2); Mean Corpuscular HGB Conc 33.5 g/dl (32-36); Mean Corpuscular Hemoglobin 30.5 pg (26-34); Mean Corpuscular Volume 90.9 fl (80-100); Mean Platelet Volume 9.5 fl (7.4-10.4); Monocytes Absolute Auto 0.4 K/mm3 (0.1-0.6); Monocytes Percent Auto 8.4 % (2.6-8.5); Neutrophils Absolute Auto 3.1 K/mm3 (1.3-6.7); Neutrophils Percent Auto 62.2 % (45.5-73.1); Platelet Count Result 214 k/mm3 (150-375); Red Cell Distribution Width 11.8 % (11.5-14.5); White Blood Count 4.9 K/mm3 (4.5-10.0)
[2024-04-14 05:07] LABS: Alanine Aminotransferase 49 U/L (6-50); Albumin Level 3.8 g/dL (3.5-5.1); Alkaline Phosphatase 73 U/L (38-126); Anion Gap 9 mmol/L (4-12); Aspartate Amino Transferase 60 U/L (17-59); Bilirubin,Total 0.5 mg/dL (0.2-1.3); Blood Urea Nitrogen 12 mg/dL (9-20); Calcium 8.8 mg/dL (8.4-10.2); Carbon Dioxide 30 mmol/L (22-30); Chloride 100 mmol/L (98-107); Estimated CRCL calculation 101 ml/min; Estimated Glomerular Filt Rate > 60; Glucose 95 mg/dL (65-110); Potassium 4.2 mmol/L (3.4-5.0); Sodium 139 mmol/L (137-145)
[2024-04-14 05:12] LABS: NT Pro B Type Natriuretic Pept 494 pg/mL (19.9-100)
--- NOTE | 2024-04-14 08:31 | PM.DS ---
DS: Admitting Diagnosis Discharge Date 04/14/2024 Admitting Diagnosis Pericarditis DS: Discharge Diagnosis Discharge Diagnosis (1) Non-STEMI (non-ST elevated myocardial infarction): Code(s): I21.4 - Non-ST elevation (NSTEMI) myocardial infarction Status: Acute Assessment and Plan: Resolved ##Chest pain and elevated troponin of 19 appears to be secondary to pericarditis. -->improves with position -->EKG shows diffuse HI depressions suggestive of pericarditis. Most likely etiology of pericarditis appears to be viral. --> positive for influenza B Per Cardiology: -Start aspirin 1000 mg every 8 hours for 1 week and monitor for chest pain resolution -Add colchicine for 3 months to prevent recurrent pericarditis -TTE -Trend troponin to peak -EKG p.r.n. for any new chest pain -Outpatient exercise stress test after patient recovers from acute illness -Check and replace electrolytes to keep potassium greater than 4 and magnesium greater than 2 (2) Influenza A: Code(s): J10.1 - Influenza due to other identified influenza virus with other respiratory manifestations Status: Acute Assessment and Plan: ##Influenza b positive --> symptomatic management --out of tamiflu window --trend labs (3) Acute pericarditis: Code(s): I30.9 - Acute pericarditis, unspecified Status: Acute Assessment and Plan: ##Most likely etiology of pericarditis appears to be recent viral infection Inflluenza b positive -->EKG shows diffuse HI depressions suggestive of pericarditis versus early repolarization -->Troponin elevated at 19 -trend trops per Cardiology: -Start aspirin 1000 mg every 8 hours for 1 week and monitor for chest pain resolution -Add colchicine for 3 months to prevent recurrent pericarditis -TTE -Trend troponin to peak - EKG p.r.n. for any new chest pain - Check and replace electrolytes to keep potassium greater than 4 and magnesium greater than 2 DS: Summary Hospital Course Hospital Course: 28-year-old male with no significant medical history that presented to the emergency department for cold symptoms ongoing over the last couple of days. Reports fever, cough, congestion that began on Monday. Reports chest pain that is worse with coughing and shortness of breath began today. Patient reports that his chest pain continued to get worse so he came to the ER for evaluation. On arrival to ER vital signs noted temperature a 100.5?, pulse 90 respirations 18 blood pressure 104/64 he was satting 99% on room air. EKG noted sinus rhythm, ST elevation in diffuse leads, probably early repolarization, minimal Q-waves, diffuse leads. Baseline artifacts in V1, V2, AVR, aVL, AVF, V1 through 5, this is a borderline EKG. Workup in the emergency department her white blood cell count of 7.5, hemoglobin 14.9, hematocrit 44.7, platelets 243, ESR is 20, BUN 11 creatinine 1.02, GFR 60. AST 188, ALT 60, total bili 0.7. BNP noted to be elevated at 794. CRP 2.9. Initial troponin was positive at 19.800, 1 hour repeat was 21.400. Chest xray No acute cardiopulmonary disease. CTA The heart is of normal size. No pericardial thickening. No pericardial effusion. No pericardial enhancement. No pulmonary embolus. No thoracic aortic dissection. The lungs are clear. On assessment patient states that his chest pain does improve with changes in position, he denies any shortness of breath at this time. Fever had reduced with antipyretics in the emergency department. He denied any nausea, vomiting or diarrhea. He denies any muscle aches. He did report fatigue. Cardiology was consulted in ER, per note Chest pain and elevated troponin of 19 appears to be secondary to pericarditis. Patient never had anginal chest pain prior to this viral illness. EKG shows diffuse HI depressions suggestive of pericarditis. Most likely etiology of pericarditis appears to be viral. Patient tested positive for influenza B. Patient was examine and admitted for a viral pericarditis, elevated troponins, influenza B. Reviewed ECHO no evidence of pericardial effusion.Left ventricular systolic function is normal, estimated at 50-55%. Today patient denies chest pain,palpitations, or SOB. Advised to follow up with PCP and Cardiology within 1 week upon discharge. Discharged with following instructions: Complete three months of colchicine therapy. Complete Aspirin 975 mg PO TID for a week (04/14-04/21), then 650mg PO TID for a week (04/22-04/29), then 650mg PO BID for a week (04/30-05/07),then 650mg PO QD for a week (05/08-05/15), then 325 PO QD for a week (05/16-05/23), then continue Aspirin 81 mg PO QD until further instructions from Cardiology. Please Omeprazole 20 mg PO BID for 3 months. Status at Discharge Cognitive/behavioral status at discharge: Stable Time Spent with Patient Time attestation: Total time spent providing and/or coordinating discharge services:45 minutes Exam Const: General: cooperative, no acute distress, alert, awake, ill appearing and average body habitus Nutritional Appearance: average body habitus Orientation/consciousness: patient oriented x3 Limitations: no limitations HENMT: Head: normocephalic Eyes: General: appearance normal, both eyes and all related structures Neck: Neck: full ROM and supple Chest: Chest palpation & inspection: normal inspection of the chest and normal palpation of entire chest wall Resp: Effort & Inspection: normal respiratory effort and Actively coughing Auscultation: rhonchi and diminished lung sounds bilateral in the lower lung amaya Cardio: Jugular venous distension: no JVD Rate: tachycardic Rhythm: abnormal rhythm Heart sounds: S1 normal heart sound present and S2 normal heart sound present Peripheral pulses: Peripheral pulses 2+ throughout GI: Inspection: normal to inspection Auscultation: normal bowel sounds Skin: General skin exam: normal color and no rashes or lesions noted Neuro: General: patient oriented x3, tone normal and moves all extremities Extrem: General: normal to inspection and full ROM Psych: Appearance: grossly normal Mental Status: mental status grossly normal Speech and movement: Normal speech and movement present DS: Data Data Completed and Pending Labs on day of discharge: Labs from last 24 hours 04/14/24 04:39 WBC 4.9 RBC 4.30 L Hgb 13.1 L Hct 39.1 L MCV 90.9 MCH 30.5 MCHC 33.5 RDW 11.8 Plt Count 214 MPV 9.5 Immature Gran % (Auto) 0.2 Neut % (Auto) 62.2 Lymph % (Auto) 26.1 [place] % (Auto) 8.4 Eos % (Auto) 2.7 Baso % (Auto) 0.4 Lymph # (Auto) 1.28 [place] # (Auto) 0.4 Eos # (Auto) 0.1 Baso # (Auto) 0.0 Abs Immat Gran (auto) 0.01 Absolute Neuts (auto) 3.1 Absolute Nucleated RBC 0.000 Nucleated RBC % 0.0 Sodium 139 Potassium 4.2 Chloride 100 Carbon Dioxide 30 Anion Gap 9 BUN 12 Creatinine 0.96 Estim Creat Clear Calc 101 Estimated GFR > 60 Glucose 95 Calcium 8.8 Total Bilirubin 0.5 AST 60 H ALT 49 Alkaline Phosphatase 73 NT-Pro-B Natriuret Pep 494 H Total Protein 7.0 Albumin 3.8 Discharge Plan Discharge Attending physician on discharge: Teddy Hernandez Consulting providers: Allie Morgan Discharging Clinician: Teddy Hernandez Anticipated Discharge Date/Time: 04/14/24 08:51 Patient Disposition: Home, Self-Care Activity: as tolerated Diet: heart healthy Discharge Instructions: -Complete three months of colchicine therapy. -Complete Aspirin 975 mg PO TID for a week (04/14-04/21), then 650mg PO TID for a week (04/22-04/29), then 650mg PO BID for a week (04/30-05/07),then 650mg PO QD for a week (05/08-05/15), then 325 PO QD for a week (05/16-05/23), then continue Aspirin 81 mg PO QD until further instructions from Cardiology. -Please take Omeprazole 20 mg PO BID for 3 months. -Follow up with ESR and CRP level with Cardiology -Please perform the labs (ESR and CRP ) before your cardiology visit. Contact your doctor or call 911 and come to the Emergency Room if you have any type of trauma, lightheadedness with standing or other worrisome symptoms. Follow-up with your primary care provider in 1-2 weeks. Please call for appointment. Follow-up with Cardiology in 2-4 weeks. Please call for an appointment. Thank you for using [facility] for your health care needs. Patient Instructions: Antibiotic Form, Aspirin (By mouth), Colchicine (By mouth), Pain Management (DC), Influenza (DC), Acute Pericarditis (DC) Patient Language: Surinamese Stand Alone Forms: General Discharge Information, Work/School Release IP Follow-up/Referrals: UNKNOWN,DOCTOR [Primary Care Provider] - (F/u Pericarditis) Allie Morgan MD [Physician] - (Please instruct the patient for further follow up for Pericarditis. CRP and ESR ordered in a week to f/u) Discharge Medications: New aspirin 325 mg Tablet 975 mg PO TID Qty: 180 0RF Rx Instructions: Complete Aspirin 975 mg PO TID for a week (04/14-04/21), then 650mg PO TID for a week (04/22-04/29), then 650mg PO BID for a week (04/30-05/07),then 650mg PO QD for a week (05/08-05/15), then 325 PO QD for a week (05/16-05/23), then continue Aspirin 81 mg PO QD until further instructions from Cardiology. colchicine [Colcrys] 0.6 mg Tablet 0.6 mg PO QAM Qty: 100 0RF Rx Instructions: Please complete the course for 3 months aspirin 81 mg capsule 81 mg PO DAILY Qty: 30 0RF Rx Instructions: Complete Aspirin 975 mg PO TID for a week (04/14-04/21), then 650mg PO TID for a week (04/22-04/29), then 650mg PO BID for a week (04/30-05/07),then 650mg PO QD for a week (05/08-05/15), then 325 PO QD for a week (05/16-05/23), then continue Aspirin 81 mg PO QD until further instructions from Cardiology. Other Ambulatory Orders: CRP (Routine) Timeframe: 1 Week Location: Determined by Patient Ordered By: Teddy Hernandez Erythrocyte Sedimentation Rate (Routine) Timeframe: 1 Week Location: Determined by Patient Ordered By: Teddy Hernandez Date of admission: 04/12/24 11:35 Primary Care Provider: UNKNOWN,DOCTOR Admitting Provider: Elisabeth Bryan Attending physician on admission: Elisabeth Bryan Condition: Stable
[2024-04-14] MEDS: COLCHICINE 0.6 MG TABLET PO (10:32)
[2024-04-14] MEDS: ASPIRIN 325 MG TABLET 975 MG PO ×2 (10:32→12:24)
== END 2024-04-14 13:04 | disposition home or self-care (01) ==
LOC: ANHED 10:19 → ANHICU 13:22 → ANHIMU 04-13 14:03 → ANHICU 04-15 09:42 → ANHIMU 04-15 09:42
PROVIDERS: Emergency Medicine; Internal Medicine Interventional Cardiology; Nurse Practitioner Family; Admitting Provider Family Medicine; Emergency Provider Physician Assistant; Visit Provider General Practice
DX: I30.9 Acute pericarditis, unspecified (principal); J10.1 Influenza due to other identified influenza virus with other respiratory manifestations; R79.89 Other specified abnormal findings of blood chemistry; R74.01 Elevation of levels of liver transaminase levels; Z20.822 Contact with and (suspected) exposure to COVID-19
CPT/HCPCS: 36415; 71045; 71046; 71275; 80053; 83690; 83735; 83880; 84484; 85025; 85380; 85610; 85652; 85730; 86140; 87637; 87641; 93005; 93306; 96361; 96374; 99285; A9270; G0378; J2270; J7030; Q9967